=== PATIENT | male | born 1975 | race Caucasian/White ===

== ENCOUNTER → 2017-06-30 | Outpatient (REF) | payer MEDICARE, MEDICAID | LOC: ZZSENDIN 14:09 | PROVIDERS: ATTEND Physician Assistant | DX: R80.9 Proteinuria, unspecified (principal) | CPT/HCPCS: 84156 ==

== ENCOUNTER → 2018-07-29 | Outpatient (CLI) | payer MEDICARE, MEDICAID ==
--- NOTE | 2018-07-29 14:52 | RADIOLOGY IMAGING REPORT ---
FACILITY: [facility] PATIENT NAME: Bob Mehta : 1975 MR: [id number] V: [id number] EXAM DATE: ORDERING PHYSICIAN: MODESTA SOLANO TECHNOLOGIST: Location: [facility] [place] Patient: Bob Mehta : 1975 Visit/Account:[id number] Date of Sevice: 07/29/2018 LIVER HISTORY: Abnormal liver enzymes COMPARISON: Abdomen ultrasound August 26, 2013 FINDINGS: Gallbladder: Unremarkable; no stones or sludge. Liver: There is increased echogenicity throughout the liver which can be seen with fatty infiltration or other infiltrative process. There are geographic areas of decreased echogenicity along the poste rior right lobe which may represent areas of focal fatty sparing Common duct: Normal, 5.5 mm diameter. Pancreas: Partially obscured by bowel, visualized aspects unremarkable. Right kidney: There two cysts in the right kidney one measuring 1 cm in diameter one measuring 1.4 cm Upper abdominal aorta and IVC: Patent. Ascites: None visualized. IMPRESSION: There is increased echogenicity throughout liver which can be seen with fatty infiltration or other i nfiltrative process There are areas of decreased echogenicity seen along the posterior right lobe which may represent are as of focal fatty sparing however given the history of abnormal liver enzymes further evaluation with CT or MR with and without contrast may be helpful depending upon the clinical presentation 2. Cysts in the right kidney Report Dictated By: Elva Rouse MD at 07/29/2018 2:44 PM Report E-Signed By: Elva Rouse MD at 07/29/2018 2:47 PM WSN:[email or web address]
== END ==
LOC: US 00:31
PROVIDERS: ATTEND Physician Assistant
DX: K76.0 Fatty (change of) liver, not elsewhere classified (principal)
CPT/HCPCS: 76705